=== PATIENT | male | born 1940 | race Caucasian/White ===

== ENCOUNTER 2017-03-08 11:55 | Inpatient (IN) | payer MEDICARE, OTHER ==
[~2017-03-08] VITALS: Ht 167.6 cm; Wt 81.6 kg
--- NOTE | ~2017-03-08 | OR ---
PATIENT'S NAME: TRINITY KERR [facility] AGE: 77 Y [address] ROOM: [address] [address] LOCATION: GPCU ADMIT DATE: 03/08/2017 OR/Procedure Report DISCHARGE DATE: 03/12/2017 FAMILY PHYSICIAN: Niles Alcaraz MD ATTENDING PHYSICIAN: Niles Alcaraz SURGEON: Bola Gale MD SENIOR LINUX SYSTEMS ADMINISTRATOR: None. DATE OF PROCEDURE: 03/08/[address] 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 PROCEDURE: 1. Irrigation and debridement of right foot, including skin, subcutaneous tissue, muscle and fascia, wound measuring 4 cm x 4 cm x 4 cm. ANESTHESIA: Sedation with ankle block. ESTIMATED BLOOD LOSS: Minimal. TOURNIQUET: Right ankle with Esmarch specimen. SPECIMENS: Right foot cultures and tissue specimen. COMPLICATIONS: None. DISPOSITION: Stable in PACU. COUNTS: All counts were correct. INDICATIONS: Mr. Kerr is a 77-year-old gentleman who underwent the noted procedures above. The risks, benefits, and alternatives pursuing surgical intervention were discussed the patient in detail. Informed consent was obtained. The patient elected to proceed with surgery. Anesthesia was consulted for their perioperative evaluation the patient. I marked the patient's right foot indicating correct surgical site. DESCRIPTION OF PROCEDURE: The patient was brought from the holding area to the operative room. A time-out was performed. Anesthesia was administered. A nerve block was placed. PATIENT'S NAME: TRINITY KERR [facility] AGE: 77 Y [address] ROOM: [address] [place] [id number] LOCATION: GPCU ADMIT DATE: 03/08/2017 OR/Procedure Report DISCHARGE DATE: 03/12/2017 FAMILY PHYSICIAN: Niles Alcaraz MD ATTENDING PHYSICIAN: Niles Alcaraz The right lower extremity was then prepped and draped in a sterile fashion. The Esmarch was placed over well-padded Webril at the level of the ankle. I turned my attention to the wound. Using a 15 blade knife; I performed a full- thickness debridement of skin, subcutaneous tissue, muscle fascia, muscle for the wound. There was purulent drainage present. I used a rongeur to remove any friable tissue present. The wound appear to track down to bone, but did not involve the fifth metatarsal by MRI. The wound was then copiously irrigated with normal sterile saline solution via pulsatile lavage. Sterile dressing was placed in form of Xeroform, the tacked wound followed by 4x4s, ABDs, Webril, an Elan bandage. The ankle tourniquet was removed. The patient was then transferred to operating table onto the stretcher. Postop shoe was placed. He is brought to recovery room in stable condition. There were no intraoperative complications noted. IMPRESSION: The patient is status post the noted procedure above. PLAN: The patient will be nonweightbearing on the right lower extremity. I would like him to rest ice and elevate the wound. I would like to see if we can get the wound healed by secondary intention. Since the patient does have peripheral neuropathy and is unable to feel the plantar surface of his foot, I believe it is prudent that we maintain him nonweightbearing. We will plan for dressing change in the next 2 to 3 days to re-evaluate the wound. We will continue antibiotics for now. Physical Therapy and Occupational Therapy will consulted for early ambulation prevention of deconditioning. The primary care team will continue to manage the patient medically. DVT prophylaxis will be in the form of aspirin or Lovenox. We will continue to follow him closely in the postoperative period. MD ANGELICA SALMON/skyla /[id number] PATIENT'S NAME: TRINITY KERR [facility] AGE: 77 Y [address] ROOM: [address] [address] LOCATION: GPCU ADMIT DATE: 03/08/2017 OR/Procedure Report DISCHARGE DATE: 03/12/2017 FAMILY PHYSICIAN: Niles Alcaraz MD ATTENDING PHYSICIAN: Niles Alcaraz CORRECTED PER DR. GALE / 04-24-2017 / KLRichie d: 03/09/17 1543 t: 04/26/17 0836, OPERATIVE SUMMARY
--- NOTE | ~2017-03-08 | OR ---
PATIENT'S NAME: TRINITY KERR [facility] AGE: 77 Y [address] ROOM: [place] [address] LOCATION: GPCU ADMIT DATE: 03/08/2017 OR/Procedure Report DISCHARGE DATE: FAMILY PHYSICIAN: Niles Alcaraz MD ATTENDING PHYSICIAN: Niles Alcaraz SURGEON: Bola Wells MD DRIVER LICENSE AGENT: None. DATE OF PROCEDURE: 03/08/2017 PREOPERATIVE DIAGNOSIS: Right plantar lateral full-thickness pressure wounds after previous transmetatarsal amputation in the setting of peripheral neuropathy. POSTOPERATIVE DIAGNOSIS: Right plantar lateral full-thickness pressure wounds after previous transmetatarsal amputation in the setting of peripheral neuropathy. PROCEDURE: 1. Irrigation and debridement of right foot wound. Includes skin, subcutaneous tissue, muscle and fascia, wound measuring 4 cm x 4 cm. ANESTHESIA: Sedation with ankle block. ESTIMATED BLOOD LOSS: Minimal. TOURNIQUET: Right ankle with Esmarch specimen. SPECIMENS: Right foot cultures and tissue specimen. COMPLICATIONS: None. DISPOSITION: Stable in PACU. COUNTS: All counts were correct. INDICATIONS: Mr. Kerr is a 77-year-old gentleman who underwent the noted procedures above. The risks, benefits, and alternatives pursuing surgical intervention were discussed the patient in detail. Informed consent was obtained. The patient elected to proceed with surgery. Anesthesia was consulted for their perioperative evaluation the patient. I marked the patient's right foot indicating correct surgical site. DESCRIPTION OF PROCEDURE: The patient was brought from the holding area to the operative room. A time-out was performed. Anesthesia was administered. A nerve block was placed. PATIENT'S NAME: TRINITY KERR [facility] AGE: 77 Y [address] ROOM: [place] [id number] LOCATION: GPCU ADMIT DATE: 03/08/2017 OR/Procedure Report DISCHARGE DATE: FAMILY PHYSICIAN: Niles Alcaraz MD ATTENDING PHYSICIAN: Niles Alcaraz The right lower extremity was then prepped and draped in a sterile fashion. The Esmarch was placed over well-padded Webril at the level of the ankle. I turned my attention to the wound. Using a 15 blade knife; I performed a full- thickness debridement of skin, subcutaneous tissue, muscle fascia, muscle for the wound. There was purulent drainage present. I used a rongeur to remove any friable tissue present. The wound appear to track down to bone, but did not involve the fifth metatarsal by MRI. The wound was then copiously irrigated with normal sterile saline solution via pulsatile lavage. Sterile dressing was placed in form of Xeroform, the tacked wound followed by 4x4s, ABDs, Webril, an Elan bandage. The ankle tourniquet was removed. The patient was then transferred to operating table onto the stretcher. Postop shoe was placed. He is brought to recovery room in stable condition. There were no intraoperative complications noted. IMPRESSION: The patient is status post the noted procedure above. PLAN: The patient will be nonweightbearing on the right lower extremity. I would like him to rest ice and elevate the wound. I would like to see if we can get the wound healed by secondary intention. Since the patient does have peripheral neuropathy and is unable to feel the plantar surface of his foot, I believe it is prudent that we maintain him nonweightbearing. We will plan for dressing change in the next 2 to 3 days to re-evaluate the wound. We will continue antibiotics for now. Physical Therapy and Occupational Therapy will consulted for early ambulation prevention of deconditioning. The primary care team will continue to manage the patient medically. DVT prophylaxis will be in the form of aspirin or Lovenox. We will continue to follow him closely in the postoperative period. MD ANGELICA SALMON/skyla /[id number] d: 03/09/17 1543 t: 03/10/17 1104, OPERATIVE SUMMARY
--- NOTE | ~2017-03-08 | DS ---
PATIENT'S NAME: TRINITY KERR [facility] AGE: 77 Y [address] ROOM: [place] [address] LOCATION: GPCU ADMIT DATE: 03/08/2017 Discharge Summary DISCHARGE DATE: 03/12/2017 FAMILY PHYSICIAN: Obed Alcaraz MD ATTENDING PHYSICIAN: Obed Alcaraz HISTORY OF PRESENT ILLNESS: Trinity Kerr entered the hospital with hypotension and an obvious cellulitis of his right partially-amputated foot. He has had a midfoot resection 2 or 3 years. He has had an open draining callus on the plantar surface over the past several years, and he has this trimmed monthly currently by Dr. Costello. Trinity said that he presented to my office about 12 hours after he began to have pain in his right foot. He said that the evening prior to admission he was nauseated, had chills, and shakes and temperature. On presenting to my office, this had all cleared, but it was obvious that he had a cellulitis and of course the concern was whether or not he had osteomyelitis. Therefore, he was admitted to the hospital. HOSPITAL COURSE: A general workup was performed. IV fluids were started in order to correct his hypotension which was rapidly improved with the fluid boluses. The patient on admission was not in any distress, even though his blood pressure was in the 70s systolic range. He did not have a temperature or shaking chills. We tried to culture the wound. We also obtained blood cultures, of course, right away. I involved Dr. Wells at Dr. Costello's suggestion since Dr. Cosetllo was absent. I left the original antibiotic orders to Dr. Wells and Dr. Wells felt that the most advantageous way to approach this was to do a debridement the following day and collect cultures at that time. MRI was taken of the patient's remaining foot upon admission and our radiology team felt that the patient certainly was suffering from cellulitis, but he did not show any signs of osteomyelitis on the films, which of course was of great relief to all who were involved. The next day, Dr. Wells did take the patient to surgery and performed a debridement and was quite pleased with what he found. Of course, copious irrigation was performed after cultures were obtained. The patient was returned to his room and Dr. Wells started Rocephin IM or IV as an antibiotic which he felt would be most efficient at dealing with what he had observed during surgery. Up until that time, Trinity had been not nauseated but certainly not hungry. However, the next day, his appetite began to improve. Dr. Wells indicated to Trinity that he did not want him to put any weight on his leg, allowed him to ambulate and have physical therapy but absolutely no weight at all on his right foot. Foot of course was dressed appropriately and the dressing was changed daily. I saw the foot for the first time at about the 3rd hospital day, and I was amazed at how well the foot was doing. There was very little drainage. Erythema had , and his red streaks were gone. There appeared to be very little signs of infection or inflammation at that time. We prepared Trinity for discharge home. He had an episode of hypertension the night prior PATIENT'S NAME: TRINITY KERR [facility] AGE: 77 Y [address] ROOM: [id number] [place] [address] LOCATION: GPCU ADMIT DATE: 03/08/2017 Discharge Summary DISCHARGE DATE: 03/12/2017 FAMILY PHYSICIAN: Obed Alcaraz MD ATTENDING PHYSICIAN: Obed Alcaraz to his daytime dismissal, and I elected to start him on amlodipine, which brought his blood pressures down to a reasonable level. I have some concerns about exactly what it is that caused his blood pressure to rise. He does not normally have trouble with hypertension, and thought perhaps he had either gotten dry or that the medications that we were giving him could possibly be problem with kidneys, however, his serum kidney tests were still very similar to those on admission and looked to be appropriate. The other thing that I had changed upon admission to the hospital was I elected to treat the patient with increased dose of hydrocortisone. 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 He takes hydrocortisone 20 mg every morning. He has been told in the past to take some in the evening or in the afternoon, but he usually does not do so. With the impending infection and stress, I felt that the increased doses were appropriate, so originally I had him on 20 mg twice a day, 10 mg in the evening, seemed to least prevent any septic shock, obvious signs of systemic inflammation. The patient was encouraged to ambulate with our physical therapy department, and he would get up several times a day and walk with a walker. He was not having any pain upon dismissal. His blood pressures were closer to normal with amlodipine, and overall I felt that things were reasonable. We matched his culture and sensitivity to appropriate antibiotic therapy, and it appeared that the Rocephin that Dr. Wells had started was an excellent choice, so I felt that continuing the Rocephin would be appropriate. So, the Rocephin was to be administered by home health once a day in Trinity's home setting. They will of course also redress his draining lesion daily. He is to stay off his feet completely until he sees Dr. Wells. I will see him the day after his dismissal. I have added Protonix, amlodipine, and Rocephin to his normal regimen of medications, and we will watch him closely in the days to come. I think he has a followup appointment with Dr. Wells toward the end of this first week. FINAL DIAGNOSIS: Cellulitis of the right prior amputated foot, apparently not resulting in any osteomyelitis. 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 OBED ALCARAZ MD JDN/adal PATIENT'S NAME: TRINITY KERR [facility] AGE: 77 Y [address] ROOM: [address] [address] LOCATION: GPCU ADMIT DATE: 03/08/2017 Discharge Summary DISCHARGE DATE: 03/12/2017 FAMILY PHYSICIAN: Obed Alcaraz MD ATTENDING PHYSICIAN: Obed Alcaraz /[id number] d: 03/14/17 0415 t: 03/15/17 1253, DISCHARGE SUMMARY
--- NOTE | ~2017-03-08 | HP ---
PATIENT'S NAME: TRINITY KERR [facility] AGE: 77 Y [address] ROOM: [address] [place], [place] [address] [facility] AD[facility] DATE: 03/08/2017 History & Physical DISCHARGE DATE: FAMILY PHYSICIAN: Niles Alcaraz MD ATTENDING PHYSICIAN: Niles Alcaraz DATE OF SERVICE: HISTORY OF PRESENT ILLNESS: Trinity Kerr is a 77-year-old gentleman who lives by himself. 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 He has always been a big vitamin fan. He presented in my office on the with limping and painful right foot or whatever left in his right foot after number of toe and mid foot resection with redness, swelling, and edema. He said the evening before he returned from baseball practice and his toe was hurting. So he got home and he began to have chills, fever, nausea, aches and pains all over. Mr. Kerr has been through this before with sepsis and he sought attention in my office the next day. On presentation, his foot had red streaking both on the plantar and on the dorsal surface of his foot. It had no tenderness. There is peripheral neuropathy. Some edema and swelling. He has an open ulcer on the plantar surface of his foot. Approximately size of quarter which has been recently debrided on a monthly basis by Dr. Sabillon. After Dr. Sabillon and I discussed the situation, obviously Mr. Kerr needed to be admitted for antibiotic therapy. PAST MEDICAL HISTORY: Of course, most significant thing is the above aforementioned brain tumor. Mr. Kerr has also had a right hip replacement perhaps 25 years ago. He has had a number of infections of the foot and subsequent resections of the toes and eventually, the right forefoot. In spite of this, he gets around reasonably well. 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 He enjoys sporting events that he has always reported on, has a daughter and grandchildren and great grandsons, all of which he follows closely with their sporting events. Occasionally, he still hunts in [place], has a [employer] business he is involved with and spends some time in that. He remains an active partner in our community. He is extremely intelligent man, although at times I am concerned about his occupation and at least in the past lack of attention to his foot, but I think he has been doing better recently. PATIENT'S NAME: TRINITY KERR [facility] AGE: 77 Y [address] ROOM: [place] [address] [facility] AD[facility] DATE: 03/08/2017 History & Physical DISCHARGE DATE: FAMILY PHYSICIAN: Niles Alcaraz MD ATTENDING PHYSICIAN: Niles Alcaraz PHYSICAL EXAMINATION: On exam, Trinity Kerr is a 77-year-old white male, reasonably well developed and reasonably well nourished although he does show signs of testosterone inadequacy over the years. He has a full distribution of thick, grayish black hair. EYES: Extraocular muscles intact. Pupils are equal, round, and reactive to light. He is very sharp and intelligent for his age. Pleasant interview. Discouraged, perhaps, at this time due to the fact that he has had these episodes before and not looking forward to hospitalization, but realized that is probably what it will take. Dentition is adequate. NECK: Region palpable. No palpable masses. Thyroid is euthyroid on palpation. LUNGS: Clear to auscultation and percussion. HEART: Sounds are irregularly irregular. VITAL SIGNS: Heart rate is up slightly in the upper 80s. Temperature has been normal in the office at 98.8. Respirations are normal at 14. Blood pressure is quite low at 78/55 which occasionally he runs due to his brain tumor and medication listed. ABDOMEN: Soft, a little obese and difficult to determine mass or tenderness. GENITALIA: He has always been a prepubescent since his discontinuance of the testosterone a number of years ago. EXTREMITIES: Warm and dry. All move appropriately. Right lower extremity, of course, has a midfoot resection of his foot. His toes are absent. His metatarsals are gone. He has an ulcer that at this time was dry, although he said it had been draining excessively over the last 24 hours. The ulcer itself does not looked exceptionally bad that he has some red streaking both on the dorsal and plantar surface of his foot. I am unable to elicit any tenderness due to the peripheral neuropathy that he has suffered over the years. Motion is reasonable although he must have some pain, as I noticed he was limping as he walked in and out. IMPRESSION: Of course are an acute cellulitis of his right foot with a concern of course is whether or not he is suffering from any osteomyelitis, and therefore, the need for the hospitalization and he has had several episodes of sepsis on presentation in the past which were quite traumatic. Of course, we are going to try to avoid this. His blood pressure of course, makes this a concern although he is certainly not septic at this time. The patient will be admitted to our PCU unit. indicated that he will be gone to an orthopedic meeting for 2 or [address] Wells who I have recently been acquainted with and I have talked to Dr. Wells about also evaluating Trinity and helping me with his care over the weekend. Will start with boluses of fluids and correct any electrolyte abnormalities. We will then perhaps debride the foot per Dr. Wells. Antibiotics will be started after appropriate cultures were taken, also the blood cultures. Lactate, procalcitonin, CRP, sedimentation rate, all of his medications will be taken PATIENT'S NAME: TRINITY KERR [facility] AGE: 77 Y [address] ROOM: [place] [address] [facility] AD[facility] DATE: 03/08/2017 History & Physical DISCHARGE DATE: FAMILY PHYSICIAN: Niles Alcaraz MD ATTENDING PHYSICIAN: Niles Alcaraz into consideration. MD GIOVANNI GIBSON/adal /[id number] D: [id number] T: [id number] HISTORY & PHYSICAL
--- NOTE | ~2017-03-08 | HP ---
PATIENT'S NAME: TRINITY KERR [facility] AGE: 77 Y [address] ROOM: [place] [address] [facility] DATE: 03/08/2017 History & Physical DISCHARGE DATE: FAMILY PHYSICIAN: Obed Alcaraz MD ATTENDING PHYSICIAN: Obed Alcaraz DATE OF SERVICE: ADDENDUM: PAST MEDICAL HISTORY: He had a ruptured appendicitis some 8 to 10 years ago. During which time, he spent several weeks in the hospital. Postoperatively recovering with appropriate antibiotic therapy. OBED ALCARAZ MD JDN/modl /[id number] D: [id number] T: [id number] HISTORY & PHYSICAL
--- NOTE | ~2017-03-08 | ER ---
PATIENT'S NAME: TRINITY KERR [facility] AGE: 77 Y [address] ROOM: [address] [address] LOCATION: GPCU ADMIT DATE: 03/08/2017 ER/Outpatient Report DISCHARGE DATE: FAMILY PHYSICIAN: Niles Alcaraz MD ATTENDING PHYSICIAN: Niles Alcaraz Time of Arrival: 1155 hours. Time of Evaluation: 1200 hours. IDENTIFICATION: A 77-year-old male. CHIEF COMPLAINT: Low blood pressure. HISTORY OF PRESENT ILLNESS: The patient is a 77-year-old male who was seen by Dr. Alcaraz for cellulitis in his right foot and was to be a direct admit to the hospital. However, his blood pressure was low at [address] Alcaraz said that his blood pressure runs low all of the time and that he did not appear to be septic in the clinic, but because of that blood pressure, he did come through the emergency room for evaluation and direct admit hold. On arrival here, the patient denies any lightheadedness or dizziness. He had fever and chills last night through the night. He has redness in his right foot with no drainage. He has no chest pain. ALLERGIES: TO LEVAQUIN. OLD RECORDS REFLECT NOT ONLY HE IS ALLERGIC TO QUINOLONES BUT ALSO TO ASPIRIN AND TROLAMINE SALICYLATE. CURRENT MEDICATIONS: 1. Synthroid. 2. Hydrocortisone. MEDICAL PROBLEMS: Osteoarthritis; peripheral neuropathy; recurrent cellulitis; coronary artery disease; recurrent sepsis; atrial fibrillation; history of MRSA; osteomyelitis; hypopituitarism, on chronic hydrocortisone. 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 SOCIAL HISTORY: The patient is . Lives in [place]. Dr. Alcaraz is her primary care PATIENT'S NAME: TRINITY KERR [facility] AGE: 77 Y [address] ROOM: [address] [place] [id number] LOCATION: GPCU ADMIT DATE: 03/08/2017 ER/Outpatient Report DISCHARGE DATE: FAMILY PHYSICIAN: Niles Alcaraz MD ATTENDING PHYSICIAN: Niles Alcaraz physician. Tobacco use, denies. Alcohol use, denies. Drug use, denies. REVIEW OF SYSTEMS: All systems reviewed and negative other than what is noted in the HPI. PHYSICAL EXAMINATION: VITAL SIGNS: Height 5 feet 6 inches, weight 82.4 kg, blood pressure 138/66, pulse 79, respirations 18, temp 97, sats 95% on room air. GENERAL: A 77-year-old male, in no acute distress. HEENT: Head: Normocephalic, atraumatic. TMs not visualized. Eyes: Pupils equal and reactive to light and accommodation. Extraocular movements intact. Nose: Mucosa pink. No lesions. Mouth: No lesions. Pharynx benign. NECK: Supple. No lymphadenopathy. LUNGS: Clear to auscultation. HEART: Regular rate and rhythm. ABDOMEN: Soft, nondistended, nontender. SKIN: [place], warm, and dry. The patient has transmetatarsal amputation to the right foot with some erythema that foot and lymphangitic spread, it is warm to touch, no drainage. Left foot transmetatarsal amputation, no erythema and no warmth. EMERGENCY DEPARTMENT COURSE: A saline lock was initiated. The lab orders that Dr. Alcaraz had left with the nursing staff were obtained. In addition to that, we did obtain 2 blood cultures, a lactate, a UA, urine culture, and one-view chest x-ray. LABORATORY DATA AND X-RAYS: His hemoglobin is 13.7, hematocrit 41.4, platelets 227, white count 13.8, 77% neutrophils, sedimentation rate 23. Procalcitonin 0.18, lactate 1.5. Sodium 138; potassium 4.2; chloride 104; CO2 of 21; BUN 23; creatinine 1.9; which is elevated from 1.6 in August of 2013. Blood sugar 111. Liver enzymes normal. CRP 8.58. TSH 0.032, free T4 0.9. UA negative. Urine culture pending. Blood cultures x2 pending. One-view chest x-ray, no acute process. Pending Radiology over-read. IMPRESSION AND PLAN: Right foot cellulitis and does not meet criteria for sepsis at this time, and the patient will go ahead and proceed to admission per Dr. Alcaraz to PCU at this time, and the patient remains hemodynamically stable throughout his stay here in the emergency room with repeat blood pressure 101/52, pulse is 78, and saturations of 95%. Dr. Alcaraz was in agreement. PATIENT'S NAME: TRINITY KERR [facility] AGE: 77 Y [address] ROOM: [place] [address] LOCATION: [facility] ADMIT DATE: 03/08/2017 ER/Outpatient Report DISCHARGE DATE: FAMILY PHYSICIAN: Niles Alcaraz MD ATTENDING PHYSICIAN: Niles Alcaraz MD CAR/modl /[id number] d: 03/08/172238 t: 03/09/17 0712, OUTPATIENT REPORT
--- NOTE | ~2017-03-08 | CON ---
PATIENT'S NAME: TRINITY KERR [facility] AGE: 77 Y [address] ROOM: [place] [address] LOCATION: GPCU ADMIT DATE: 03/08/2017 Consultation DISCHARGE DATE: FAMILY PHYSICIAN: Niles Alcaraz MD ATTENDING PHYSICIAN: Niles Alcaraz DATE OF CONSULTATION: 03/08/2017 REFERRING PHYSICIAN: HANNA GALE MD CHIEF COMPLAINT: Right foot pain. HISTORY OF PRESENT ILLNESS: Mr. Kerr is a pleasant 77-year-old gentleman, who had a previous transmetatarsal amputation of the right foot. He reports that he did well with this. He reports that he also has peripheral neuropathy of unknown origin otherwise. He reports that he has developed an ulcer at the base of the fifth metatarsal. He does report erythema, warmth, and active drainage. I was contacted by Dr. Alcaraz, his primary care provider. I saw the patient in the Emergency Room, and elected to admit the patient for further care. He has consulted me for definitive orthopedic care of the right foot. Currently, the patient denies any constitutional symptoms such as fever, chills, or night sweats. He also denies any dizziness, chest pain, shortness of breath, blurred vision, nausea, vomiting, or diarrhea. He is an independent ambulator at baseline. REVIEW OF SYSTEMS: A 10-point review of systems is otherwise mentioned above in the HPI. The patient's issue is musculoskeletal. All other pertinents are negative, and the review of systems is otherwise as mentioned above. PAST MEDICAL HISTORY: 1. Hypertension. 2. Hyperlipidemia. 3. Foot gangrene. 4. Peripheral neuropathy. PAST SURGICAL HISTORY: Includes previous debridement of the right foot and subsequent transmetatarsal amputation of the foot. SOCIAL HISTORY: The patient lives at home with his . He denies any alcohol, tobacco, or illicit drug use. PATIENT'S NAME: TRINITY KERR [facility] AGE: 77 Y [address] ROOM: [place] [address] LOCATION: GPCU ADMIT DATE: 03/08/2017 Consultation DISCHARGE DATE: FAMILY PHYSICIAN: Niles Alcaraz MD ATTENDING PHYSICIAN: Niles Alcaraz FAMILY HISTORY: Includes hypertension and hypercholesterolemia on both maternal and paternal sides of the family. MEDICATIONS: 1. Cortef. 2. Indocin. 3. Synthroid. 4. Vitamin D. 5. Motrin. ALLERGIES: LEVAQUIN. PHYSICAL EXAMINATION: VITAL SIGNS: Currently pending. GENERAL: The patient is awake and alert and oriented x3. He is in no acute distress. He is actively conversing with me at the bedside. He reports he is in no acute pain. HEENT: Normocephalic and atraumatic. Extraocular movements are intact. PERRLA. Moist mucous membranes. Oropharyngeal airway is clear. NECK: Supple. Trachea is in the midline. CARDIOVASCULAR: Regular rate and rhythm. CHEST: Normal symmetric chest. Respirations are observed bilaterally. ABDOMEN: Soft, nontender, and nondistended. PELVIS: Stable. MUSCULOSKELETAL: Right lower extremity: Focal examination of the patient's right lower extremity revealed that the patient is grossly neurologically intact distally. Compartments of the thigh, leg, and foot are soft. There are palpable dorsalis pedal and posterior tibial pulses. There was a 4 cm x 4 cm well-circumscribed ulcerative lesion under the plantar surface of the fifth metatarsal head. There was some purulent drainage noted. There was surrounding erythema and warmth. The rest of the flap from the transmetatarsal amputation appeared intact. The patient denotes some notable decreased sensation globally in the extremity, and notes that this is secondary to peripheral neuropathy. The patient is able to dorsiflex his ankle to neutral with the knee extended, and it improves to approximately 15 degrees past neutral with the knee flexed. This is a positive Silfverskiold test. LABORATORY VALUES: CBC with hemoglobin of 13.7, hematocrit of 41.4, white blood cell count of 13.8, and platelet count of 227. Chem-7: Sodium is 138, potassium is 4.2, chloride is 104, CO2 is 21, BUN is 23, creatinine is 1.9, and glucose is 111. Blood cultures are currently pending. CRP was 8.58. Glycosylated hemoglobin PATIENT'S NAME: TRINITY KERR [facility] AGE: 77 Y [address] ROOM: [id number] [place], [place] [address] [facility] ADMIT DATE: 03/08/2017 Consultation DISCHARGE DATE: FAMILY PHYSICIAN: Niles Alcaraz MD ATTENDING PHYSICIAN: Niles Alcaraz was 5.4. Procalcitonin is 0.18, which is elevated. An ESR is 23. IMAGING STUDIES: An MRI of the right foot reveals evidence of a swelling and soft tissue swelling in the forefoot. No evidence of osteomyelitis or abscess. IMPRESSION: Right plantar lateral surface of the foot wound secondary to peripheral neuropathy with surrounding cellulitis and purulent drainage. PLAN: I had a long discussion with the patient in the presence of his regarding the right foot. The patient has a foot wound that appears infected. He has gastrocnemius equinus as well. I am recommending a right gastrocnemius recession procedure, as well as a thorough irrigation and debridement of the right foot wound. I would like to hold the antibiotics for now, and culture intraoperatively. I have discussed the risks, benefits, and alternatives of pursuing surgical intervention with the patient in detail. I discussed the risks of anesthesia, infection, bleeding, and/or injury to the neurovascular structures. The patient expressed understanding of this. Informed consent was obtained, and the patient elected to proceed with surgery. We will plan for surgery hopefully tomorrow morning or early afternoon, seeing that this case is an add-on. We will work to get him to the Operating Room as soon as we can. I have answered all the patient's questions in the presence of his to his satisfaction. We will plan for surgery as soon as possible tomorrow. Note that I did discuss the results of the MRI that was obtained this evening with the patient in detail. Again, it is my impression that there appears to be perhaps a collection of fluid, but I am not convinced that there is evidence of osteomyelitis present. MD ANGELICA SALMON/skyla /[id number] d: 03/08/17 2357 t: 03/09/17 1413, CONSULTATION REPORT
[~2017-03-08 11:55] MED LIST: HYDROCORTISONE20 MG PO; INDOCIN25 MG PO; LEVOTHROID(SYN75 MCG PO
[2017-03-08 12:40] LABS: BASOPHIL # 0.1 K/uL (0.0-0.2); BASOPHIL % 0.4 %; EOSINOPHIL # 0.1 K/uL (0.0-0.5); EOSINOPHIL % 0.9 %; HEMATOCRIT 41.4 % (37.0-53.0); HEMOGLOBIN 13.7 g/dL (11.0-16.0); IMMATURE GRANULOCYTE # 0.1 K/uL (0.0-0.3); IMMATURE GRANULOCYTE % 0.7 %; LYMPHOCYTE # 1.7 K/uL (0.8-4.0); LYMPHOCYTE % 12.2 %; MCH 29.8 pg (27.0-34.0); MCHC 33.1 gm/dL (32.0-36.5); MONOCYTE # 1.2 K/uL (0.0-1.0); MONOCYTE % 8.7 %; MPV 10.3 fl (9.4-12.4); NEUTROPHIL # (ANC) 10.7 K/uL (1.4-9.0); NEUTROPHIL % 77.1 %; NRBC % 0 /100WBC (0-0.00); PLATELET COUNT 227 K/uL (150-450); RDW-CV 13.7 % (11.9-14.6); WBC 13.8 K/uL (4.0-11.0)
[2017-03-08 12:49] LABS: BILIRUBIN URINE NEGATIVE (NEGATIVE); BLOOD URINE NEGATIVE /UL (NEGATIVE); GLUCOSE URINE NEGATIVE (NEGATIVE); KETONE URINE NEGATIVE (NEGATIVE); LEUKOCYTES URINE 25 /UL (NEGATIVE); NITRITE URINE NEGATIVE (NEGATIVE); PROTEIN URINE NEGATIVE (NEGATIVE); UROBILINOGEN URINE NORMAL (NORMAL)
[2017-03-08 13:00] LABS: COLOR URINE YELLOW (YELLOW)
[2017-03-08 13:01] LABS: ALBUMIN 3.4 gm/dL (3.5-5.0); ANION GAP 17.2 (10.0-19.0); CALCIUM 8.5 mg/dL (8.5-10.5); CREATININE 1.9 mg/dL (0.6-1.3); POTASSIUM 4.2 mMol/L (3.7-5.1); TOTAL PROTEIN 7.8 g/dL (6.0-8.4)
[2017-03-08 13:01] LABS: TURBIDITY URINE CLEAR (CLEAR)
[2017-03-08 13:02] LABS: BACTERIA URINE NEGATIVE (NEGATIVE); EPITHELIAL URINE NEGATIVE #/HPF (NEGATIVE); RBC URINE NEGATIVE #/HPF (NEGATIVE); WBC URINE RARE #/HPF (NEGATIVE)
[2017-03-08] MEDS ORDERED: THERAGRAN-M1 TAB PO (13:57)
[2017-03-08] MEDS ORDERED: ANTIOXIDANT FO1 EACH PO (13:57)
[2017-03-08] MEDS ORDERED: VITAMIN D1000 UNIT PO (13:58)
[2017-03-08] MEDS ORDERED: ADVIL200 MG PO (13:59)
--- NOTE | 2017-03-08 15:29 | NUR ---
Pt is 77 y/o male admit for R)foot cellulitis for Dr.JD Alcaraz. Pt alert and oriented x3. Hx MRSA R) foot. Has open wound on R)foot. Placed in contact isolation. Allergies to levaquin,aspercreme,quinolones. Hx neuropathy in feet- etiology unknown,all toes amputated,RLS,pneumonia,arthritis,hx osteomylitis R) foot. Resides at home alone. Red and yellow bracelet on.
--- NOTE | 2017-03-08 18:18 | NUR ---
A&O.SBA. BILAT TOES AMPUTATED, ULCER TO R FOOT BELOW GREAT TOE AREA. SPB 130'S. RA.AFEBRILE. NO C/O PAIN. LS CLEAR.BS ACTIVE BM 03/07. VD PER URINAL. PIVIOT TO CHAIR AND COMMODE. ISO FOR MRSA. IV TO R FA D51/2NS 20MEQ KCL @250 X1 L THEN DECREASE TO 150ML/H. NPO MID NOC FOR I&D. XEROFORM,GAUZE AND KERLIX TO PUT ON FOOT. DAUGHTER AT BEDSIDE,
--- NOTE | 2017-03-09 06:57 | NUR ---
Significant Event: A/0 X 3. VSS, DID HAVE TO PUT ON 2L 02 HS. DRESSING TO RIGHT FOOT C/D/I. PLAN IS FOR I/D SURGERY WITH [facility] TODAY. TANYA NOTIFIED ABOUT GFR RESULTS LAST NIGHT, HE WILL NOTIFY PROPER MD AND LET KNOW. NO COMPLICATIONS DURING THE EVENING. Follow up:
[2017-03-09 09:15] LABS: BASOPHIL % 0.4 %; EOSINOPHIL # 0.2 K/uL (0.0-0.5); EOSINOPHIL % 2.1 %; HEMATOCRIT 37.3 % (37.0-53.0); HEMOGLOBIN 12.1 g/dL (11.0-16.0); IMMATURE GRANULOCYTE % 0.3 %; LYMPHOCYTE # 2.1 K/uL (0.8-4.0); LYMPHOCYTE % 23.1 %; MCH 29.7 pg (27.0-34.0); MCHC 32.4 gm/dL (32.0-36.5); MCV 91.6 fl (83.0-98.0); MONOCYTE # 0.7 K/uL (0.0-1.0); MONOCYTE % 8.2 %; MPV 10.3 fl (9.4-12.4); NEUTROPHIL % 65.9 %; NRBC % 0 /100WBC (0-0.00); RBC 4.07 M/uL (3.50-5.50); RDW-CV 13.5 % (11.9-14.6); WBC 9.1 K/uL (4.0-11.0)
[2017-03-09 09:25] LABS: PLATELET COUNT 177 K/uL (150-450)
[2017-03-09 09:30] LABS: ALBUMIN 2.9 gm/dL (3.5-5.0); ANION GAP 12.7 (10.0-19.0); CALCIUM 8.2 mg/dL (8.5-10.5); CREATININE 1.5 mg/dL (0.6-1.3); POTASSIUM 4.7 mMol/L (3.7-5.1); TOTAL PROTEIN 6.7 g/dL (6.0-8.4)
[2017-03-09 09:31] LABS: TOTAL BILIRUBIN 0.5 mg/dL (0.0-1.5)
--- NOTE | 2017-03-09 16:50 | NUR ---
Significant event: A&Ox3. HR 50-60's. SBP 120-130's. Afebrile. R) foot dressed with xerofoam, ABD, and christy wrap, has had shadow drainage since arrival to floor, has not increased in size. To be NON-weight bearing to RLE. Educated patient on ankle exercises. IVF changed to D5 1/2 NS at 150 ml/hr. To have sips/chips until tomorrow AM. Wound cultured in surgery. Follow Up: Continue current POC
[2017-03-10 05:04] LABS: BASOPHIL % 0.2 %; EOSINOPHIL # 0.1 K/uL (0.0-0.5); HEMATOCRIT 32.9 % (37.0-53.0); HEMOGLOBIN 10.7 g/dL (11.0-16.0); IMMATURE GRANULOCYTE % 0.3 %; LYMPHOCYTE # 2.1 K/uL (0.8-4.0); MCH 29.4 pg (27.0-34.0); MCHC 32.5 gm/dL (32.0-36.5); MCV 90.4 fl (83.0-98.0); MONOCYTE # 0.5 K/uL (0.0-1.0); MONOCYTE % 5.4 %; MPV 10.2 fl (9.4-12.4); NEUTROPHIL % 69.1 %; NRBC % 0 /100WBC (0-0.00); PLATELET COUNT 164 K/uL (150-450); RBC 3.64 M/uL (3.50-5.50); RDW-CV 13.2 % (11.9-14.6); WBC 8.7 K/uL (4.0-11.0)
[2017-03-10 05:24] LABS: ALBUMIN 2.6 gm/dL (3.5-5.0); ANION GAP 11.9 (10.0-19.0); CREATININE 1.4 mg/dL (0.6-1.3); POTASSIUM 3.9 mMol/L (3.7-5.1); TOTAL PROTEIN 6.1 g/dL (6.0-8.4)
[2017-03-10 05:26] LABS: CALCIUM 7.4 mg/dL (8.5-10.5); TOTAL BILIRUBIN 0.3 mg/dL (0.0-1.5)
--- NOTE | 2017-03-10 05:40 | NUR ---
Significant Event: Patient alert and oriented x3. SBP 140s-150s. All other vital signs stable. On RA. Right foot dressing with xerofoam, ABD, and DARIAN wrap. Shadow drainage. CSM WNL. No changes with neuro checks. Foot remained elevated throughout shift. D5 1/2 NS continues at 150ml/hr. Calm and cooperative with all cares. Follow up: Advance diet as tolerated today. Non-weight bearing to right foot.
--- NOTE | 2017-03-10 17:21 | NUR ---
Significant Event: pt up desir with therapy, gets tired. Pt up to commode twice for bms, one loose. Dressing changed to foot, old bloody dried. IVF dcd. Follow up:
--- NOTE | 2017-03-11 05:33 | NUR ---
Significant Event: A/O X 3, AMBULATES WELL WITH STAND BY ASSIST. HAS BOOT FOR RIGHT FOOT BUT DOES NO FIT WITH DRESSINGS ON. SBP'S 140-150'S, HR 60'S, WITH GIDEON WHEN SLEEPING. DID NOT SLEEP MUCH THIS EVENING. ONLY COMPLAINT WAS LOOSE STOOLS AT BEGGINING OF SHIFT. NO PAIN, NO PAIN MEDS GIVEN. Follow up:
--- NOTE | 2017-03-11 17:15 | NUR ---
Significant Event: DC'D IV FLUIDS AND ANCEF, STARTED ROCEPHINE IV, NO BM'S THIS SHIF, UP IN CHAIR MOST OF THIS SHIFT, BACK TO BED LATE AFTERNOON. PLEASENT AND COOPERATIVE WITH CARES Follow up: MONITOR
--- NOTE | 2017-03-12 00:16 | NUR ---
PATIENT HAD A ON SUNDAY. SHE HAS HAD A HISTORY OF GOING INTO [facility] BUT USSUALLY CONVERTS ON HER OWN. ON THE AM OF THE SHE FELT HEART PALPATATIONS. SHE WENT TO THE ER IN [place]. [facility] WAS UNSUCCESSFUL IN CONVERTING HER. THEY DID CONVERT HER WITH [facility] BUT IT DID NOT SUSTAIN. SHE WAS SENT HER VIA EMS IN WHICH SHE WENT IN AND OUT OF [facility] AND [facility] MULTIPLE TIMES. UPON ARRIVAL TO PCU HER HR WAS 180, BP 174/90 AND ONLY APPEARED TO BE IN MILD DISTRESS. ALL OTHER VSS ON RA.
--- NOTE | 2017-03-12 04:31 | NUR ---
Significant Event: BP'S HIGH THIS EVENING. ON SECOND ASSESSMENT BP WAS 200/84. CALLED DR. ARANGO, GAVE NORVASC 5 MG PO. ALL OTHER VSS, AFEBRILE. DRESSING TO RIGHT FOOT REMAINS C/D/I. OTHER THAN THE HIGH BP HE HAS HAD NO ISSUES OR COMPLICATIONS DURING THE EVENING. Follow up:
[2017-03-12 09:17] LABS: ALBUMIN 3.1 gm/dL (3.5-5.0); ANION GAP 12.8 (10.0-19.0); CALCIUM 8.3 mg/dL (8.5-10.5); CREATININE 1.6 mg/dL (0.6-1.3); POTASSIUM 3.8 mMol/L (3.7-5.1)
[2017-03-12 09:21] LABS: TOTAL BILIRUBIN 0.4 mg/dL (0.0-1.5)
[2017-03-12 10:58] LABS: BASOPHIL % 0.4 %; EOSINOPHIL # 0.1 K/uL (0.0-0.5); EOSINOPHIL % 1.5 %; HEMATOCRIT 36.2 % (37.0-53.0); IMMATURE GRANULOCYTE # 0.1 K/uL (0.0-0.3); IMMATURE GRANULOCYTE % 0.6 %; LYMPHOCYTE % 12.2 %; MCH 29.8 pg (27.0-34.0); MCHC 33.1 gm/dL (32.0-36.5); MCV 89.8 fl (83.0-98.0); MONOCYTE # 0.4 K/uL (0.0-1.0); MONOCYTE % 5.2 %; MPV 10.3 fl (9.4-12.4); NEUTROPHIL # (ANC) 6.7 K/uL (1.4-9.0); NEUTROPHIL % 80.1 %; NRBC % 0 /100WBC (0-0.00); RBC 4.03 M/uL (3.50-5.50); RDW-CV 13.3 % (11.9-14.6); WBC 8.4 K/uL (4.0-11.0)
[2017-03-12 11:02] LABS: PLATELET COUNT 200 K/uL (150-450)
--- NOTE | 2017-03-12 12:56 | NUR ---
Introduced self and role of care management to patient. He lives in [place]. He states that he has a male room-mate that is there only from 10:30pm to the next morning. He states that he is able to do all his own ADL's. He is working on having his sister come stay with him for a few days after discharge. He plans on returning home on discharge. He denies any needs at this time. Will continue to follow.
[2017-03-12] MEDS ORDERED: ROCEPHIN2 G1 IM (15:47)
[2017-03-12] MEDS ORDERED: NORVASC5 MG PO (15:50)
[2017-03-12] MEDS ORDERED: PROTONIX40 MG PO (15:51)
--- NOTE | 2017-03-12 16:41 | NUR ---
Significant event: Patient to dismiss home today. Had a BP of 204/78 this AM, given 10 mg of norvasc, SBP afterwards was 150's. Patient to go home on Norvasc as prescribed. Patient to have home health as well as additional help as per . Patient on RA, denies pain. Using knee scooter, educated patient on going slow when ambulating and non-weight bearing status to R) lower extremity. IV d/c'd.
[2017-04-30] MEDS ORDERED: ADVIL200 MG PO (08:49)
[2017-06-05] MEDS ORDERED: AMOXICILLIN500 MG PO (15:28)
[2017-06-05] MEDS ORDERED: FLAGYL500 MG PO (15:32)
== END 2017-03-12 17:33 | disposition home health service (06) | DRG 501 ==
LOC: GMED 11:55 → GPCU 12:17
PROVIDERS: Family Medicine; ADMIT Family Medicine
PROC: 0KBV0ZX Excision of Right Foot Muscle, Open Approach, Diagnostic (ICD-10-PCS; principal; 2017-03-08)
DX: T87.43 Infection of amputation stump, right lower extremity (principal); L03.115 Cellulitis of right lower limb; E89.3 Postprocedural hypopituitarism; E27.49 Other adrenocortical insufficiency; G62.9 Polyneuropathy, unspecified; B96.89 Other specified bacterial agents as the cause of diseases classified elsewhere; I10 Essential (primary) hypertension; E78.5 Hyperlipidemia, unspecified; Z89.431 Acquired absence of right foot
CPT/HCPCS: J0690; J0696; J1650; J3480; J7030; J7040; J7050

== ENCOUNTER 2017-05-14 14:04 | Inpatient (IN) | payer MEDICARE, OTHER ==
[~2017-05-14] VITALS: Ht 167.6 cm; Wt 76.1 kg
--- NOTE | ~2017-05-14 | HP ---
PATIENT'S NAME: TRINITY KERR [facility] AGE: 77 Y [address] ROOM: [address] [place], [place] [address] LOCATION: GPCU ADMIT DATE: 05/14/2017 History & Physical DISCHARGE DATE: FAMILY PHYSICIAN: Obed Alcaraz MD ATTENDING PHYSICIAN: Obed Alcaraz DATE OF SERVICE: Luis Antonio Kerr enters the hospital via my office. Luis Antonio had called several times towards the end of last week and he just said he did not feel good. He originally had some diarrhea and had some nausea, aches and pains, and then it would seem like less of a problem and then he would decide not to come in and then in turn call again the next day. On Sunday, he did make it into the office. It was obvious that he looked very tired, warn, dehydrated and said that his major complaint was back pain. He describes the back pain as extending from his left rhomboid area down to below his rib cage. He said it can hurt to twist his torso and movement did make it worse, although his arm motion did not make any difference in elucidating the pain. He said that his appetite had been off, although he is still trying to drink quite a bit. In general, he did not feel good. Said that he had had some gastritis with belching and reflux symptoms earlier in the week, but since he started taking his pantoprazole again, he felt a little better. On discussing with him, it was learned that after we discontinued the indomethacin about 10 days ago when he said that was not working for his GI system, evidently he also decided to quit taking the pantoprazole and after 5 or 6 days, he realized that he still needed the pantoprazole, so he went back to it. Luis Antonio was in the hospital, I think about 2 months ago for an ulcer on his foot and has been doing well since that time. He has reverted back to seeing Dr. Costello for this problem although Dr. Costello was gone during Luis Antonio's hospitalization and Dr. Wells was the one who actually surgically debrided Luis Antonio's foot at that time. Luis Antonio says he has been doing quite well with his foot and overall until the last week or so. PAST MEDICAL HISTORY AND REVIEW OF SYSTEMS: Past medical history and review of systems are extensive. 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 He was on testosterone, thyroid medication, and hydrocortisone thereafter. He no longer takes the testosterone, but still takes the hydrocortisone and thyroid on a daily basis. 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 He is involved in a [employer] and I think he still spends time with that, gets out about the community, enjoys things when he can. He still enjoys going [place] to [place], but I think his partially amputated feet have PATIENT'S NAME: TRINITY KERR [facility] AGE: 77 Y [address] ROOM: [id number] [place] [id number] LOCATION: [facility] ADMIT DATE: 05/14/2017 History & Physical DISCHARGE DATE: FAMILY PHYSICIAN: Obed Alcaraz MD ATTENDING PHYSICIAN: Obed Alcaraz certainly probably slowed that endeavor down. Luis Antonio lives by himself in [place], [place]. His perhaps 10 years ago. He is watched reasonably closely by his adult daughter, who lives about 100 some miles away in [place]. She tries her best to keep on top of his general health and his acute issues. MEDICATIONS: Medications are as above. In discussing with Luis Antonio his current medications, he did say that he took 2 Advil a couple of times last week. Whether or not that was significant with what we found with his renal demise I am not for certain. Of interest might also be the antibiotics that he went home on after his surgery. PHYSICAL EXAMINATION: GENERAL: Luis Antonio Kerr is a, I believe, late 69-year-old, white male, well nourished, well developed. Because of his hormone inadequacy, he has a rather fleshy type body in his abdomen and his upper arms, etc. HEENT: Head inspection reveals a normocephalic male, somewhat gaunt in appearance and somewhat dark skin. Eyes somewhat sunken. Full distribution of greyish black hair. Extraocular muscles intact. Pupils are equal, round, and reactive to light. Posterior pharynx is clear. Ears: Normal. NECK: Neck region is supple. Heart sounds transmitted. LUNGS: No rales, rhonchi, or wheezes present. HEART: Heart sounds regular irregular with no murmurs. ABDOMEN: Slightly obese, fleshy. Bowel sounds are present. INGUINAL REGION: The patient has infantile prepubertal genitalia. EXTREMITIES: Adequate peripheral circulation is noted. All extremities are warm and dry. The patient has had mid forefoot procedures done to both feet and they are currently reasonably well healed. Perhaps an ulcer still in progress on the right. HOSPITAL SCENARIO: At this time, we sent Luis Antonio over to have a V/Q scan of his chest to make sure that he was not suffering from pulmonary embolism. In order to do that or else a possible CT scan of his chest, a chemistry panel was performed and it was found that his GFR was 13. His BUN and creatinine were significantly elevated. For this reason, I contacted Dr. Rehman, who felt that outpatient fluids were probably not going to rectify this problem and that probably in order to best treat Luis Antonio and deal with his issues was to place him in the hospital at this time, so that is why we are doing what we're doing. Dr. Rehman or Dr. Sol will be evaluating Luis Antonio and hopefully trying to improve his renal status. I think Luis Antonio was on the Indocin for approximately maybe a week to 10 days which certainly could possibly cause a decrease in his renal function. I am sure he was also on antibiotics for a period of time after he left the hospital and will have to check on that and see what the situation is on that. The four PATIENT'S NAME: TRINITY KERR [facility] AGE: 77 Y [address] ROOM: [place] [address] [facility] ADMIT DATE: 05/14/2017 History & Physical DISCHARGE DATE: FAMILY PHYSICIAN: Obed Alcaraz MD ATTENDING PHYSICIAN: Obed Alcaraz Advil that he said he took this last weekend certainly would not help the situation with his kidneys, but I cannot imagine that just four Advil would result in the picture that we are seeing at this time. PLAN: Plan is IV fluids and evaluation of the patient's current renal status. Continuation of his normal home medications. OBED ALCARAZ MD JSAMIR/modl /[id number] D: [id number] T: [id number] HISTORY & PHYSICAL
--- NOTE | ~2017-05-14 | CON ---
PATIENT'S NAME: [facility]ITY [facility] AGE: 77 Y [address] ROOM: [place] [address] LOCATION: GPCU ADMIT DATE: 05/14/2017 Consultation DISCHARGE DATE: FAMILY PHYSICIAN: Niles Alcaraz MD ATTENDING PHYSICIAN: Niles Alcaraz DATE OF CONSULTATION: 05/14/2017 REQUESTING PHYSICIAN: Dr. Niles Alcaraz. REASON FOR CONSULTATION: Elevated BUN and creatinine. HISTORY OF PRESENT ILLNESS: The patient is a 69-year-old white male with a history of elevated creatinine from unclear etiology. The patient went to see Dr. Alcaraz today because of dyspnea on exertion of 2 to 3 days. He also has not been feeling well over the last 7 to 10 days with occasional diarrhea. He reports that he is not eating much meat and he also noticed decreased urine output. Dr. Alcaraz did routine lab work and his creatinine was up to 4.0. The patient has been taking some ibuprofen for the last few days. He does have a history of gout with recent uric acid level of 9.0 and he has taken some indomethacin before taking ibuprofen. I have been asked to see him because of his elevated creatinine. ALLERGIES: ALLERGIC TO LEVAQUIN CAUSES DIARRHEA. MEDICATIONS: 1. Synthroid 50 mcg a day. 2. Ibuprofen p.r.n. 3. Hydrocortisone 20 mg in the morning and 10 at p.m. PAST MEDICAL HISTORY: Peripheral neuropathy, panhypopituitarism, degenerative joint disease, osteomyelitis, cardiac arrhythmias, and elevated creatinine. PAST SURGICAL HISTORY: Brain tumor removal, ruptured appendix repair, amputation of the toes, and right hip replacement. REVIEW OF SYSTEMS: GENERAL: He denies any fever or chills. He is somewhat tired. HEENT: Denies any sore throat or sinus congestion. PATIENT'S NAME: [facility] AGE: 77 Y [address] ROOM: [address] [address] LOCATION: GPCU ADMIT DATE: 05/14/2017 Consultation DISCHARGE DATE: FAMILY PHYSICIAN: Niles Alcaraz MD ATTENDING PHYSICIAN: Niles Alcaraz CARDIOVASCULAR: Denies any chest pain or dyspnea on exertion. RESPIRATORY: He reports that he has some pleuritic-type chest pain on the left side of the chest. GI: Denies any abdominal pain. He has occasional diarrhea and somewhat poor appetite. : Notices decreased urine output. No dysuria. MUSCULOSKELETAL: He denies any joint pain or swelling. SKIN: Denies any rash or pruritus. Denies any allergies or hay fever. LYMPHATIC/HEMATOLOGIC: Denies any lymph node enlargement or easy bruising. Denies any heat or cold intolerance. PSYCHIATRIC: Denies any sadness, crying spells, poor concentration, or panic attack. 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 Currently, he is retired. He is a . He has one daughter. Quit tobacco 50 years ago. Prior to that, he had 5-pack-year history of smoking. Does not drink at this time. FAMILY HISTORY: No family history of kidney disease or dialysis. LABORATORY DATA: His blood work from today shows creatinine of 4.0, sodium of 137, potassium of 5.1, and bicarbonate of 20. PHYSICAL EXAMINATION: GENERAL APPEARANCE: A 69-year-old, white male, lying in the hospital bed, not in any acute distress. VITAL SIGNS: Afebrile, pulse 72, systolic blood pressure 176 and diastolic of 75, and respiratory rate of 18. HEENT: Head: Normocephalic. Pupils are around and equal. Normal eyelid and conjunctivae. Oral cavity clear. Dry mucosa. Trachea central. No thyromegaly. Flat jugular veins. No bruit. HEART: Sounds are audible in all the areas without any gallop or murmur. Pulses regular in rhythm. LUNGS: Bilaterally clear to auscultate. No intercostal retraction. ABDOMEN: Soft and nontender. Cannot palpate any liver or spleen. EXTREMITIES: He has no clubbing or cyanosis. MUSCULOSKELETAL: He has atrophy of small muscles of the hand. SKIN: No sign of vasculitis or palpable induration. LYMPHATICS: Did not examine lymphatics. HIGHER PSYCHIATRIC FUNCTION: He has normal speech and memory. ASSESSMENT: 1. Acute kidney injury, most likely this is prerenal etiology. As mentioned PATIENT'S NAME: [facility] AGE: 77 Y [address] ROOM: [place] [address] [facility] ADMIT DATE: 05/14/2017 Consultation DISCHARGE DATE: FAMILY PHYSICIAN: Niles Alcaraz MD ATTENDING PHYSICIAN: Niles Alcaraz above, over the last 7 to 10 days, the patient has had some diarrhea and has relatively low appetite and he has been taking a lot of nonsteroidals. 2. Panhypopituitarism. 3. Degenerative joint disease. 4. Peripheral neuropathy. 5. History of osteomyelitis. PLAN: I am going to take him off his nonsteroidals. We will start giving him intravenous volume with bicarbonate at a rate of 150 mL an hour. We will check his urinalysis. The patient already had a V/Q scan for his pleuritic like chest pain and it has been negative. His chest x-ray showed some emphysema but no infiltrate. Dr. Alcaraz has ordered cardiac enzymes. Check his renal panel in the morning. He does not have any gross uremia and does not need to be started on dialysis at this time. I will check his renal ultrasound in the morning and I will review his urinalysis. I would like to thank Dr. Niles Alcaraz for allowing me to participate in this patient's care. M MD ANGELA SMITH/skyla /[id number] d: 05/15/17 0112 t: 05/16/17 1658, CONSULTATION REPORT
--- NOTE | ~2017-05-14 | DS ---
PATIENT'S NAME: TRINITY KERR [facility] AGE: 77 Y [address] ROOM: [id number] [place], [place] [address] LOCATION: GPCU ADMIT DATE: 05/14/2017 Discharge Summary DISCHARGE DATE: 05/17/2017 FAMILY PHYSICIAN: Obed Alcaraz MD ATTENDING PHYSICIAN: Obed Alcaraz [facility] COURSE: Trinity Kerr entered the hospital after I visited with him in my office and he had 3 or 4 days of weakness and nausea and in general feeling very poor, also complained of some left-sided back pain which generally fit in with the rest of his concerns. It was obvious that he was not doing well, and I felt that we needed to get blood work at that time, and I also was quite concerned about his chest pain and that he had that he described as posterior left medial scapular extending down below his rib cage. I was concerned whether or not he might possibly have a pulmonary embolism. So, I sent him over to the hospital for a V/Q scan after I visited with Dr. Shane about the appropriate testing procedure to determine whether or not Trinity was suffering from pulmonary embolism. We ordered a CMS and CBC with diff prior to the V/Q scan, and received a call from the lab and his kidney function was down significantly. He had a GFR of 15, BUN in the 40s or 50s, and creatinine of over 4. Therefore, we were quite worried about his renal function. So, I visited with Dr. Tariq Rehman and we both agreed that probably Trinity's best interest would be admitted to the hospital, which I did do and then Dr. Rehman of course began the IV fluids, I think, with normal saline and dextrose, probably bicarb IV to head Trinity in the right direction, and he did gradually improve over the course of 3 or 4 days. His creatinine fell over a full point down to the lower 3 range and the BUN did come down some. His GFR changed very slowly. I think it alex from 14 or 15 up to 17 or 18. Within a very short period of time, 12 to 18 hours, Trinity began to feel quite a bit better than while he was on admission, and I told him that this hospitalization was certainly not a detention sentence and I encouraged him to eat and drink whatever he could. I encouraged him to be of good cheer, walk around the room, and when if at all possible to get up and even walk out in the edsir which he took advantage of right away and he continued to improve on a daily basis. His functional improvement laboratory work. However, on the third hospitalized evening, I believe, Dr. Rehman stopped his IV to see how he would do without it and he seems to do well. So, therefore, our plans were to dismiss him the following day, which we did do. One of my concerns had been how we were going to effectively deal with his rising uric acid which I assume may have been part of the problem with the renal enzyme elevations. I had prescribed indomethacin for him which he took a week and then it stated to upset his stomach, so he quit. I think after that time he admitted to taking some Advil for that arthritic pain, and I am sure between the two of them, he probably had some consequence on his renal insufficiency. Also, he had been ill with a debridement procedure on his never ending scenario with his peripheral neuropathy and loss of digits and forefoot on PATIENT'S NAME: TRINITY KERR [facility] AGE: 77 Y [address] ROOM: [place] [address] LOCATION: GPCU ADMIT DATE: 05/14/2017 Discharge Summary DISCHARGE DATE: 05/17/2017 FAMILY PHYSICIAN: Obed Alcaraz MD ATTENDING PHYSICIAN: Obed Alcaraz both feet, and I think he was on Rocephin for an extended period of time after the last hospitalization which I think began on the 08 of March. Whether or not the Rocephin could also be partially responsible for his kidney values plummeting is difficult to say or whether it was an accumulation of all of the above. At this time, Trinity feels much better. He has always been a great huge water drinker so that part should help us. He is being discharged homeward, I believe. He has sisters in [place]. We talked about that. His daughter stays in touch with him on a daily basis and watches him very closely and keeps a track very closely, daily basis, on the phone when she is not there in person, and I feel that we will know if there is a problem that arises. Dr. Rehman will see Trinity in the office in a week's time, and I am sure he will recheck the renal panel at that time. I plan to see Trinity in the following week afterwards to follow up on things. The uric acid elevation was eventually addressed by Dr. Rehman and he started Trinity on both colchicine 0.1 day and 100 mg of allopurinol and of course we will slowly increase that in the next 2 or 3 months. IMPRESSIONS: Recent demise of renal function with elevated BUN, creatinine, and lowering of the GFR. During his hospitalization, we began correcting this and we have had some positive movement with plummeting values of his creatinine and BUN and some slight rise in his GFR. 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 OBED ALCARAZ MD JSAMIR/modl /[id number] d: 05/19/17 0327 t: 05/31/17 1423, DISCHARGE SUMMARY
[~2017-05-14 14:04] MED LIST changes: +ADVIL200 MG PO; +ANTIOXIDANT FO1 EACH PO; +NORVASC5 MG PO; +PROTONIX40 MG PO; +ROCEPHIN2 G1 IM; +THERAGRAN-M1 TAB PO; +VITAMIN D1000 UNIT PO
[2017-05-14 14:44] LABS: HEMATOCRIT 40.1 % (37.0-53.0); HEMOGLOBIN 13.1 g/dL (11.0-16.0); MCHC 32.7 gm/dL (32.0-36.5); MCV 88.7 fl (83.0-98.0); MPV 10.1 fl (9.4-12.4); RBC 4.52 M/uL (3.50-5.50); RDW-CV 13.2 % (11.9-14.6); WBC 13.2 K/uL (4.0-11.0)
[2017-05-14 14:45] LABS: PLATELET COUNT 289 K/uL (150-450)
[2017-05-14 15:07] LABS: ALBUMIN 3.2 gm/dL (3.5-5.0); CALCIUM 8.5 mg/dL (8.5-10.5); TOTAL PROTEIN 8.1 g/dL (6.0-8.4)
[2017-05-14 15:10] LABS: ANION GAP 16.1 (10.0-19.0); POTASSIUM 5.1 mMol/L (3.7-5.1); TOTAL BILIRUBIN 0.3 mg/dL (0.0-1.5)
[2017-05-14 15:22] LABS: ABSOLUTE NEUTROPHIL CT (ANC) 10.8 K/uL (1.4-9.0); BANDED NEUTROPHIL # 0.7 K/uL (0.0-0.1); BANDED NEUTROPHILS % 5 %; LYMPHOCYTE % 15 %; MONOCYTE # 0.4 K/uL (0.0-1.0); SEGMENTED NEUTROPHIL # 10.2 K/uL (1.4-9.0); SEGMENTED NEUTROPHIL % 77 %
[2017-05-14 20:21] LABS: BILIRUBIN URINE NEGATIVE (NEGATIVE); BLOOD URINE 250 /UL (NEGATIVE); COLOR URINE YELLOW (YELLOW); GLUCOSE URINE NEGATIVE (NEGATIVE); KETONE URINE NEGATIVE (NEGATIVE); LEUKOCYTES URINE 25 /UL (NEGATIVE); NITRITE URINE NEGATIVE (NEGATIVE); PROTEIN URINE 15 mg/dL (NEGATIVE); SPEC GRAVITY URINE 1.015 (1.003-1.035); TURBIDITY URINE CLEAR (CLEAR); UROBILINOGEN URINE NORMAL (NORMAL)
[2017-05-14 20:28] LABS: RBC URINE 50-100 #/HPF (NEGATIVE)
[2017-05-14 20:29] LABS: BACTERIA URINE NEGATIVE (NEGATIVE)
[2017-05-14 20:54] LABS: CPK 27 IU/L (35-332)
--- NOTE | 2017-05-15 02:13 | NUR ---
1820: PATIENT ARRIVES TO ROOM VIA WHEELCHAIR DX: SANJIV FOR DR TONJA ARANGO AND DR DEVINE. GFR=15. PATIENT IS A/O X 3. VS UPON ASSESSMENT HR 60. BP 178/74, 100% ON RA, R 12, TEMP 98.1 PATIENT DENIES PAIN AT THIS TIME. AWAITING ORDERS AT THIS TIME.
--- NOTE | 2017-05-15 05:46 | NUR ---
Significant Event: PATIENT A/O X 3, COOPERATIVE WITH CARES. VSS. CONT ON RA. DENIES PAIN OVERNIGHT. UP WITH STANDBY ASSIST TO BR. VOIDS PER URINAL 375 ML OUT. RESTED WELL OVERNIGHT. Follow up: CONTINUE TO MONITOR PER PLAN OF CARE. LABS PENDING.
[2017-05-15 09:10] LABS: ALBUMIN 2.8 gm/dL (3.5-5.0); ANION GAP 13.5 (10.0-19.0); CALCIUM 7.9 mg/dL (8.5-10.5); CREATININE 3.7 mg/dL (0.6-1.3); PHOSPHORUS 3.8 mg/dL (2.5-4.9); POTASSIUM 4.5 mMol/L (3.7-5.1)
[2017-05-15 09:17] LABS: CPK 33 IU/L (35-332)
[2017-05-15] MEDS ORDERED: PROTONIX40 MG PO (10:43)
--- NOTE | 2017-05-15 18:55 | NUR ---
Significant Event:Patient feeling better. Bicarb decreased to 75 ml/hr. No c/o pain. WOC saw and orders for care of bilateral feet given. PT seeing for shoulder. Had BM. No c/o pain. Appetite fair. Started on colchicine and allopurinal. Creatatine was 3.7, GFR 15. Voiding in good amounts- had 900 ml out. Urine less dark. Follow up:Monitor renal function
[2017-05-16 04:36] LABS: ALBUMIN 2.5 gm/dL (3.5-5.0); ANION GAP 11.3 (10.0-19.0); CALCIUM 7.6 mg/dL (8.5-10.5); CREATININE 3.4 mg/dL (0.6-1.3); PHOSPHORUS 3.5 mg/dL (2.5-4.9); POTASSIUM 4.3 mMol/L (3.7-5.1)
--- NOTE | 2017-05-16 04:54 | NUR ---
Significant Event: PT A/O X3. VSS. SBP 150'S HR 60-70 SATS 96% ON RA. PT CREAT THIS AM 3.4, PREVIOUS WAS 3.7. PT IV TO RIGHT FOREARM WITH 1/2 NS WITH BICARB AT 75ML/HR. DENIES PAIN. PT VOIDS PER URNIAL WITH GOOD UOP. PT HAS DRESSING TO BOTH FEET C/D/I. Follow up: FOLLOW CARE PLAN
--- NOTE | 2017-05-16 16:13 | NUR ---
Introduced self and role of care management to pt. He lives alone in [place] but does have a daughter down by [place]. He is independent with cares and still drives and does his own cooking and cleaning. At this time denies needs or any dme's. Will assist as needed.
--- NOTE | 2017-05-16 17:45 | NUR ---
Significant Event: pt up self and had PT today. Pt slept most of day. Bicarb still infusing. Pt family here with him today. Creat 3.4, better Follow up:
--- NOTE | 2017-05-17 04:47 | NUR ---
Pt a/o x4. SBP 160-180's throughout the night. NSR, RA, Afebrile. IV RFA SL post bag of bicarb. Waiting AM labs. Pt sba, voids per urinal, had bm last noc. ACCU check ordered for before supper. Denies pain. Plan: Waiting renal panel.
[2017-05-17 04:48] LABS: ALBUMIN 2.5 gm/dL (3.5-5.0); CREATININE 3.3 mg/dL (0.6-1.3); PHOSPHORUS 3.7 mg/dL (2.5-4.9)
[2017-05-17 04:50] LABS: CALCIUM 7.4 mg/dL (8.5-10.5)
[2017-05-17 10:26] LABS: BILIRUBIN URINE NEGATIVE (NEGATIVE); BLOOD URINE 250 /UL (NEGATIVE); COLOR URINE YELLOW (YELLOW); GLUCOSE URINE NEGATIVE (NEGATIVE); KETONE URINE NEGATIVE (NEGATIVE); LEUKOCYTES URINE NEGATIVE /UL (NEGATIVE); NITRITE URINE NEGATIVE (NEGATIVE); PROTEIN URINE 15 mg/dL (NEGATIVE); TURBIDITY URINE 1+ (CLEAR); UROBILINOGEN URINE NORMAL (NORMAL)
[2017-05-17 10:27] LABS: BACTERIA URINE RARE (NEGATIVE); EPITHELIAL URINE RARE #/HPF (NEGATIVE); RBC URINE 20-50 #/HPF (NEGATIVE); WBC URINE RARE #/HPF (NEGATIVE)
[2017-05-17] MEDS ORDERED: ZYLOPRIM100 MG PO (13:15)
[2017-05-17] MEDS ORDERED: COLCRYS0.6 MG PO (13:16)
--- NOTE | 2017-05-17 17:25 | NUR ---
d- ord pt dc i-nurse did teaching on all meds, rx given, appt set up, woc appt set, pt does dressing changes, r-pt states understanding p-dc as ord
[2017-06-05] MEDS ORDERED: AMOXICILLIN500 MG PO (15:28)
[2017-06-05] MEDS ORDERED: FLAGYL500 MG PO (15:32)
== END 2017-05-17 15:30 | disposition disaster alternative care site (69) | DRG 683 ==
LOC: GLAB 14:04 → GPCU 18:38
PROVIDERS: ADMIT Family Medicine
PROC: 3E0F7HZ Introduction of Radioactive Substance into Respiratory Tract, Via Natural or Artificial Opening (ICD-10-PCS; principal; 2017-05-14)
DX: N17.9 Acute kidney failure, unspecified (principal); E23.0 Hypopituitarism; R06.09 Other forms of dyspnea; T87.89 Other complications of amputation stump; D49.6 Neoplasm of unspecified behavior of brain; E79.0 Hyperuricemia without signs of inflammatory arthritis and tophaceous disease; E87.5 Hyperkalemia; M19.90 Unspecified osteoarthritis, unspecified site; N18.3 Chronic kidney disease, stage 3 (moderate); R34 Anuria and oliguria; Z87.39 Personal history of other diseases of the musculoskeletal system and connective tissue; Z89.422 Acquired absence of other left toe(s); Z89.421 Acquired absence of other right toe(s); G62.9 Polyneuropathy, unspecified
CPT/HCPCS: A9539; A9540

== ENCOUNTER 2017-06-02 06:48 | Emergency (ER) | payer MEDICARE, OTHER ==
--- NOTE | ~2017-06-02 | ER ---
PATIENT'S NAME: TRINITY KERR [facility] AGE: 77 Y [address] ROOM: [place] [address] LOCATION: [facility] ADMIT DATE: 06/02/2017 ER/Outpatient Report DISCHARGE DATE: 06/02/2017 FAMILY PHYSICIAN: Niles Alcaraz MD ATTENDING PHYSICIAN: Jj Nunez TIME OF ARRIVAL: 0648 hours. TIME OF EVALUATION: 0652 hours. CHIEF COMPLAINT: Diarrhea and nausea. HISTORY OF PRESENT ILLNESS: The patient is a 77-year-old male who presents to the emergency department today with a chief complaint of diarrhea and nausea. He reports it started about 3 days prior to arrival. He has had multiple episodes of diarrhea. He had some low-grade fevers. The patient has been having some issues with some chronic kidney disease and is scheduled for a kidney biopsy with Dr. Rehman. He does report some nausea. No vomiting. No constipation. He denies any abdominal pain. No shortness of breath. No cough. No chest pain. PAST MEDICAL HISTORY: Chronic kidney disease, peripheral neuropathy, panhypopituitarism, degenerative joint disease, osteomyelitis, cardiac arrhythmias, and elevated creatinine. PAST SURGICAL HISTORY: Brain tumor removal, ruptured appendix repair, amputation of toes, and right hip replacement. SOCIAL HISTORY: The patient denies any tobacco, alcohol, or illicit drug use. ALLERGIES: LEVAQUIN WHICH HAD CAUSED DIARRHEA IN THE PAST. MEDICATIONS: Please see list. SHRINK PIT OPERATOR: Dr. Rehman. PATIENT'S NAME: TRINITY KERR [facility] AGE: 77 Y [address] ROOM: [place] [address] LOCATION: [facility] ADMIT DATE: 06/02/2017 ER/Outpatient Report DISCHARGE DATE: 06/02/2017 FAMILY PHYSICIAN: Niles Alcaraz MD ATTENDING PHYSICIAN: Jj Nunez REVIEW OF SYSTEMS: All systems are reviewed by myself and are negative with the exception of those discussed in the HPI and Past Medical History. PHYSICAL EXAMINATION: VITAL SIGNS: Weight 75.3 kg, blood pressure 170/77, pulse 103, respiratory rate 18, temperature 100.0, and oxygen saturation 96% on room air. GENERAL: The patient is a 77-year-old male who appears stated age, in no acute distress at this time. HEENT: Normocephalic and atraumatic. Pupils are equal, round, and reactive to light. Mucous membranes are moist. NECK: Supple. There is no nuchal rigidity. CARDIOVASCULAR: Regular rate and rhythm. No murmurs, rubs, or gallops. LUNGS: Clear to auscultation bilaterally. No wheezes, rales, or rhonchi. ABDOMEN: Soft, nontender, and nondistended. No rebound, rigidity, or guarding. MUSCULOSKELETAL: The patient does have braces on her lower extremities. Moves all 4 extremities. Ambulates with a swaying gait. SKIN: Warm and dry. There are no rashes or lesions noted. LABORATORY AND X-RAY DATA: CT scan of the abdomen and pelvis without IV contrast shows no evidence of bowel obstruction or infectious changes. There is cholelithiasis without evidence of acute cholecystitis/hepatic steatosis. CBC is unremarkable. Coags are normal. Lipase is normal. CMP unremarkable except for BUN 44, creatinine 4.0, and glucose 91. LFTs are normal. Cardiac enzymes are normal. ProBNP is 667. Lactate is normal. Procalcitonin is 0.22. Urinalysis shows 250 blood, 50 to 100 rbc's, 25 leukocyte esterase, and 30 protein. IMPRESSION: 1. Diarrhea. 2. Chronic kidney disease, stable. 3. Cholelithiasis. 4. Hematuria. 5. Initial visit. EMERGENCY DEPARTMENT COURSE: The patient was brought back to the examination room. Seen and evaluated by myself. IV is established. Laboratory analysis and imaging are obtained as described above. I have discussed the results with the patient. I have also discussed the results with the patient's daughter at the bedside. He was given 1 L of normal saline, 4 mg of Zofran, as well as 1 g of Tylenol. He reports he feels much better at this time. I have discussed the case with Dr. Alcaraz. The patient does feel much improved at this time. The patient would like to go home. I have written a prescription for Cipro and Flagyl with PATIENT'S NAME: TRINITY KERR [facility] AGE: 77 Y [address] ROOM: [place] [address] LOCATION: ED ADMIT DATE: 06/02/2017 ER/Outpatient Report DISCHARGE DATE: 06/02/2017 FAMILY PHYSICIAN: Niles Alcaraz MD ATTENDING PHYSICIAN: Jj Nunez renal dosing of ciprofloxacin. I have recommend a bland diet. I have discussed return to care instructions including worsening symptoms or any other concerns, to return to the emergency department as soon as possible. I have asked that he follows up with Dr. Alcaraz. Dr. Alcaraz is agreeable. The patient is agreeable without further questions at this time. DISPOSITION,: The patient is discharged to home in good condition. DO NELI GUERRA/modl /[id number] d: 06/02/17 1146 t: 06/02/17 1529, OUTPATIENT REPORT
[~2017-06-02 06:48] MED LIST changes: +COLCRYS0.6 MG PO; +ZYLOPRIM100 MG PO
[2017-06-02 07:31] LABS: BASOPHIL % 0.6 %; EOSINOPHIL # 0.2 K/uL (0.0-0.5); HEMATOCRIT 35.8 % (37.0-53.0); IMMATURE GRANULOCYTE % 0.6 %; LYMPHOCYTE # 1.9 K/uL (0.8-4.0); LYMPHOCYTE % 28.1 %; MCH 29.5 pg (27.0-34.0); MCHC 33.5 gm/dL (32.0-36.5); MONOCYTE # 0.6 K/uL (0.0-1.0); MONOCYTE % 8.7 %; MPV 9.7 fl (9.4-12.4); NEUTROPHIL # (ANC) 3.9 K/uL (1.4-9.0); NRBC % 0 /100WBC (0-0.00); RBC 4.07 M/uL (3.50-5.50); RDW-CV 13.5 % (11.9-14.6); WBC 6.7 K/uL (4.0-11.0)
[2017-06-02 07:34] LABS: PLATELET COUNT 216 K/uL (150-450)
[2017-06-02 07:35] LABS: INR - (THERAPEUTIC) 0.95 (0.92-1.07)
[2017-06-02 08:07] LABS: ALBUMIN 3.1 gm/dL (3.5-5.0); ALK PHOS 91 IU/L (33-138); ALT 17 IU/L (12-78); ANION GAP 14.1 (10.0-19.0); AST 22 IU/L (10-40); BLOOD UREA NITROGEN 44 mg/dL (6-24); CALCIUM 8.4 mg/dL (8.5-10.5); CHLORIDE 105 mMol/L (96-110); CO2 22 mMol/L (22-32); CPK 41 IU/L (35-332); POTASSIUM 4.1 mMol/L (3.7-5.1); SODIUM 137 mMol/L (135-145); TOTAL BILIRUBIN 0.3 mg/dL (0.0-1.5); TOTAL PROTEIN 8.2 g/dL (6.0-8.4)
[2017-06-02 09:45] LABS: BILIRUBIN URINE NEGATIVE (NEGATIVE); BLOOD URINE 250 /UL (NEGATIVE); COLOR URINE BROWN (YELLOW); GLUCOSE URINE NEGATIVE (NEGATIVE); KETONE URINE NEGATIVE (NEGATIVE); LEUKOCYTES URINE 25 /UL (NEGATIVE); NITRITE URINE NEGATIVE (NEGATIVE); PROTEIN URINE 30 mg/dL (NEGATIVE); TURBIDITY URINE 2+ (CLEAR); UROBILINOGEN URINE NORMAL (NORMAL)
[2017-06-02 09:54] LABS: AMORPHOUS URINE 1+ (NEGATIVE); BACTERIA URINE RARE (NEGATIVE); EPITHELIAL URINE 0-2 #/HPF (NEGATIVE); RBC URINE 50-100 #/HPF (NEGATIVE)
[2017-06-05] MEDS ORDERED: AMOXICILLIN500 MG PO (15:28)
[2017-06-05] MEDS ORDERED: FLAGYL500 MG PO (15:32)
== END 2017-06-02 10:14 | disposition disaster alternative care site (69) ==
LOC: GMED 06:48
PROVIDERS: Emergency Medicine
DX: R19.7 Diarrhea, unspecified (principal); N18.9 Chronic kidney disease, unspecified; K80.20 Calculus of gallbladder without cholecystitis without obstruction; R31.9 Hematuria, unspecified; G62.9 Polyneuropathy, unspecified; E23.0 Hypopituitarism; I49.9 Cardiac arrhythmia, unspecified; Z98.890 Other specified postprocedural states; Z88.1 Allergy status to other antibiotic agents; Z79.899 Other long term (current) drug therapy
CPT/HCPCS: J2001; J2405; J7030

== ENCOUNTER → 2017-06-14 | Outpatient (CLI) | payer MEDICARE, OTHER ==
[~2017-06-14] MED LIST changes: +AMOXICILLIN500 MG PO; +FLAGYL500 MG PO
== END ==
LOC: LGSMG 12:52
DX: N18.4 Chronic kidney disease, stage 4 (severe) (principal)